=== PATIENT | female | born 1980 | race Caucasian/White ===

== ENCOUNTER 2017-03-07 09:26 | Emergency (ER) | payer BC ==
[2017-03-07 09:36] VITALS: BP 144/85
--- NOTE | 2017-03-07 10:20 | UC ---
Throat Pain/Nasal Ishmael HPI - HPI Summary HPI Summary: ONE WEEK OF SWOLLEN TONSILS, EAR ACHE FEVER. NO RASHES. NO ABDOMINAL PAIN. - History of Current Complaint Chief Complaint: UCRespiratory Stated Complaint: SORE THROAT HEADACHE FEVER Time Seen by Provider: 03/07/17 09:33 Hx Obtained From: Patient Hx Last Menstrual Period: 02/24/17 Onset/Duration: Gradual Onset, Lasting Days Severity: Moderate Pain Intensity: 7 Pain Scale Used: 0-10 Numeric Cough: Nonproductive Associated Signs & Symptoms: Positive: Sinus Discomfort, Nasal Discharge, Fever - Epiglottits Risk Factors Epiglottis Risk Factors: Negative - Allergies/Home Medications Allergies/Adverse Reactions: Allergies Allergy/AdvReac Type Severity Reaction Status Date / Time No Known Allergies Allergy Verified 03/07/17 09:31 Home Medications: Home Medications Venlafaxine CAP (NF) [Effexor CAP (NF)] 300 mg PO DAILY 03/07/17 [History Confirmed 03/07/17] PMH/Surg Hx/FS Hx/Imm Hx Previously Healthy: Yes - Surgical History Surgical History: Yes Surgery Procedure, Year, and Place: csection. lumbar (4-5)laminectomy 2004. appe - Family History Known Family History: Negative: Respiratory Disease - Social History Occupation: Employed Full-time Lives: With Family Alcohol Use: Rare Substance Use Type: None Smoking Status (MU): Former Smoker When Did the Patient Quit Smoking/Using Tobacco: 10 yrs - Immunization History Most Recent Influenza Vaccination: last winter Most Recent Tetanus Shot: not sure Most Recent Pneumonia Vaccination: never Review of Systems Constitutional: Fever Skin: Negative Eyes: Negative ENT: Sore Throat, Ear Ache, Sinus Congestion Respiratory: Cough Cardiovascular: Negative Gastrointestinal: Negative Genitourinary: Negative Motor: Negative Neurovascular: Negative Musculoskeletal: Negative Neurological: Negative Psychological: Negative Is Patient Immunocompromised?: No All Other Systems Reviewed And Are Negative: Yes Physical Exam Triage Information Reviewed: Yes Appearance: No Pain Distress, Well-Nourished, Ill-Appearing Vital Signs: Initial Vital Signs Temp 99 F 03/07/17 09:34 Pulse 91 03/07/17 09:34 Resp 20 03/07/17 09:34 BP 144/85 03/07/17 09:34 Pulse Ox 100 03/07/17 09:34 Vital Signs Reviewed: Yes Eye Exam: Normal ENT: Positive: Pharyngeal erythema, TM dull, TM red - RIGHT, Tonsillar swelling , Tonsillar exudate Dental Exam: Normal Neck exam: Normal Neck: Positive: Supple, Nontender, No Lymphadenopathy Respiratory Exam: Other - COUGH Respiratory: Positive: Chest non-tender, Lungs clear, Normal breath sounds, No respiratory distress, No accessory muscle use Cardiovascular Exam: Normal Cardiovascular: Positive: RRR, No Murmur, Pulses Normal, Brisk Capillary Refill Abdominal Exam: Normal Musculoskeletal Exam: Normal Musculoskeletal: Positive: Strength Intact, ROM Intact Neurological Exam: Normal Psychological Exam: Normal Skin Exam: Normal Throat Pain/Nasal Course/Dx - Differential Dx/Diagnosis Differential Diagnosis/HQI/PQRI: Pharyngitis, Sinusitis, Tonsillitis, URI Provider Diagnoses: RIGHT OTITIS; TONSILITIS Discharge - Discharge Plan Condition: Stable Disposition: HOME Prescriptions: Amoxicillin/Clavulanate TAB* [Augmentin TAB 875*] 875 mg PO BID #20 tab Patient Education Materials: Tonsillitis (ED), Serous Otitis Media (ED) Referrals: Marcello Barnes MD [Primary Care Provider] -
== END 2017-03-07 10:10 | disposition home or self-care (01) ==
LOC: UCEAST 09:26
DX: J03.90 Acute tonsillitis, unspecified (principal); H66.91 Otitis media, unspecified, right ear; Z87.891 Personal history of nicotine dependence
CPT/HCPCS: 87651; 99212; G0463

== ENCOUNTER 2017-03-26 05:39 | Emergency (ER) | payer BC ==
[2017-03-26] MEDS ORDERED: predniSONE TAB* 20 MG PO ONE (06:07)
[2017-03-26] MEDS ORDERED: Levofloxacin TAB* 750 MG PO ONE (06:07)
--- NOTE | 2017-03-26 06:35 | ED ---
Jeannette Ordonez Thomas, scribed for Efrain Mccartney MD on 03/26/17 at 0610 . Influenza-Like Illness - HPI Summary HPI Summary: The pt is a 36 y/o F presenting to the ED c/o headache, sore throat, postnasal drip, hoarse voice, and bilateral ear pressure for the last two weeks. She has been having an intermittent fever for the last few days (measured at 101). The patient rates her pain 3/10. The patient finished a 10-day course of Augmentin 5 -6 days ago, and her symptoms have worsened since then. The patient has had multiple ear infections in the past year. She has a known recent sick contact positive for influenza. - History of Current Complaint Chief Complaint: EDFluSymptoms Time Seen by Provider: 03/26/17 05:42 Hx Obtained From: Patient Onset/Duration: Lasting Weeks - 2, Still Present, Worse Since - last few days Severity: Moderate Associated Signs & Symptoms: Fever, Sore Throat, Headache Related Hx: Possible Flu/Infectious Exposure - known flu exposure - Allergy/Home Medications Allergies/Adverse Reactions: Allergies Allergy/AdvReac Type Severity Reaction Status Date / Time No Known Allergies Allergy Verified 03/26/17 05:51 PMH/Surg Hx/FS Hx/Imm Hx Previously Healthy: Yes Endocrine/Hematology History: Denies: Hx Diabetes, Hx Thyroid Disease Cardiovascular History: Denies: Hx Hypertension Respiratory History: Denies: Hx Asthma, Hx Chronic Obstructive Pulmonary Disease (COPD) GI History: Denies: Hx Ulcer Musculoskeletal History: Reports: Hx Back Problems, Other Musculoskeletal History - obesity Sensory History: Reports: Hx Contacts or Glasses Opthamlomology History: Reports: Hx Contacts or Glasses - Surgical History Surgery Procedure, Year, and Place: csection. lumbar (4-5)laminectomy 2004. appe Hx Anesthesia Reactions: No Infectious Disease History: No Infectious Disease History: Denies: Hx Clostridium Difficile, Hx Hepatitis, Hx Human Immunodeficiency Virus (HIV), Hx of Known/Suspected MRSA, Hx Shingles, Hx Tuberculosis, Hx Known/ Suspected VRE, Hx Known/Suspected VRSA, History Other Infectious Disease, Traveled Outside the [place] in Last 30 Days - Family History Known Family History: Negative: Respiratory Disease - Social History Occupation: Employed Full-time Lives: With Family Alcohol Use: Rare Substance Use Type: Reports: None Hx Tobacco Use: Yes Smoking Status (MU): Former Smoker Review of Systems Positive: Fever Positive: Sore Throat, Other - Postnasal drip, hoarse voice, bilateral ear pressure Positive: Headache All Other Systems Reviewed And Are Negative: Yes Physical Exam Triage Information Reviewed: Yes Vital Signs On Initial Exam: Initial Vitals Temp Pulse Resp BP Pulse Ox 97.0 F 109 16 127/82 100 03/26/17 05:42 03/26/17 05:42 03/26/17 05:42 03/26/17 05:42 03/26/17 05:42 Vital Signs Reviewed: Yes Appearance: Positive: Well-Appearing, No Pain Distress Skin: Positive: Warm, Skin Color Reflects Adequate Perfusion, Dry, Other - There is an eczematous rash on both hands Head/Face: Positive: Normal Head/Face Inspection Eyes: Positive: EOMI, JAZLYN ENT: Positive: Other - There is some redness in both tympanic membranes. There is no exudate. Posterior pharnyx has clear mucus. Neck: Positive: Supple, Nontender Respiratory/Lung Sounds: Positive: Clear to Auscultation, Breath Sounds Present Cardiovascular: Positive: RRR, Pulses are Symmetrical in both Upper and Lower Extremities Abdomen Description: Positive: Nontender, Soft Bowel Sounds: Positive: Present Musculoskeletal: Positive: Normal, Strength/ROM Intact Neurological: Positive: Normal, Sensory/Motor Intact, Alert, Oriented to Person Place, Time - Cynthia Coma Scale Coma Scale Total: 15 Diagnostics - Vital Signs Vital Signs Temp Pulse Resp BP Pulse Ox 03/26/17 05:42 97.0 F 109 16 127/82 100 - Laboratory Lab Results: Lab Results 03/26/17 03/26/17 Range/Units 06:13 06:14 Influenza A (Rapid) Negative (Negative) Influenza B (Rapid) Negative (Negative) Group A Strep Rapid Negative (Negative) Lab Statement: Any lab studies that have been ordered have been reviewed, and results considered in the medical decision making process. Flu Symptom Course/Dx - Course Course Of Treatment: Pt with neg flu/strep. Sinus pain. Sx greater than 2wks. Tx with steroid, decongestants and Levaquin. Works here as nurse. Assessment/Plan: Rapid Strep, Influenza A and B are negative. - Diagnoses Differential Diagnosis/HQI/PQRI: Positive: Influenza, Upper Respiratory Infection, Other Provider Diagnoses: Acute sinusitis Discharge - Discharge Plan Condition: Good Disposition: HOME Prescriptions: Guaifenesin [Eql Mucus-ER 12 Hour] 600 mg PO BID #20 tab Levofloxacin TAB* [Levaquin TAB*] 750 mg PO DAILY #6 tab predniSONE TAB* [Deltasone TAB*] 50 mg PO DAILY #4 tab Patient Education Materials: Sinusitis (ED) Referrals: Marcello Barnes MD [Primary Care Provider] - Additional Instructions: Sinus rinse. Humidifier while sleeping. Avoid smokers. Return with high fevers, vomiting, worse or other concerns. The documentation as recorded by the Jeannette ness Thomas accurately reflects the service I personally performed and the decisions made by , Efrain Mccartney MD.
[2017-03-26 06:38] VITALS: BP 126/77
== END 2017-03-26 06:33 | disposition home or self-care (01) ==
LOC: ED 05:39
DX: J01.90 Acute sinusitis, unspecified (principal); R50.9 Fever, unspecified; J02.9 Acute pharyngitis, unspecified; R51 Headache; Z87.891 Personal history of nicotine dependence
CPT/HCPCS: 87502; 87651; 99282; A9270-GY; J7512

== ENCOUNTER 2017-04-25 09:54 | Emergency (ER) | payer BC | END 2017-04-25 11:54 | disposition left against medical advice (07) | LOC: UCCORT 09:54 | DX: J98.9 Respiratory disorder, unspecified (principal); Z53.21 Procedure and treatment not carried out due to patient leaving prior to being seen by health care provider ==

== ENCOUNTER 2017-04-30 10:40 | Day surgery (SDC) | payer BC ==
[~2017-04-30 10:40] MED LIST: Buffered Lidocaine 0.9% SYRIN* 5 ML/SYR SYRINGE INTRADERM ONE; Scopolamine 1.5 mg* PATCH TRANSDERM ONE
[2017-04-30] MEDS ORDERED: Scopolamine 1.5 mg* PATCH ONE (10:45)
[2017-04-30] MEDS ORDERED: Succinylcholine* 20 MG/ML 10 ML VIAL ONE (13:36)
[2017-04-30] MEDS ORDERED: Dexamethasone IV* 4 MG/ML 1 ML (4 MG) ONE (13:36)
[2017-04-30] MEDS ORDERED: Ondansetron INJ* 2 MG/ML VIAL ONE (13:36)
[2017-04-30] MEDS ORDERED: fentaNYL* 50 MCG/ML 2 ML VIAL (100 MCG VIAL) ONE ×3 (13:36→14:54)
[2017-04-30] MEDS ORDERED: Propofol* 10 MG/ML 20 ML BTL IV PUSH ONE (13:36)
[2017-04-30] MEDS ORDERED: Lidocaine 2% PF * 5 ML VIAL ONE (13:36)
[2017-04-30] MEDS: fentaNYL* 50 MCG/ML 2 ML VIAL (100 MCG VIAL) IV PRN ×3 (14:15→14:55)
[2017-04-30] MEDS ORDERED: Naloxone* 0.4 MG/ML 1 ML VIAL IV PRN (14:21)
[2017-04-30] MEDS ORDERED: oxyCODONE TAB* 5 MG TAB PO PRN (14:21)
[2017-04-30] MEDS ORDERED: oxyCODONE ORAL.SOLN* 5 MG/5 ML UDC ONE (14:23)
[2017-04-30] MEDS ORDERED: Acetaminophen ADULT LIQ* 650 MG/20.3 ML UDC ONE (15:31)
[2017-04-30 16:12] VITALS: BP 130/86
--- NOTE | 2017-05-01 12:28 | OP ---
DATE OF OPERATION: 04/30/17 - SDS DATE OF : 76 SURGEON: Arturo Orozco MD ANESTHESIOLOGIST: Jackson London MD ANESTHESIA: General PRE-OP DIAGNOSIS: Chronic tonsillitis. POST-OP DIAGNOSIS: Chronic tonsillitis. OPERATIVE PROCEDURE: Tonsillectomy under general endotracheal anesthesia. COMPLICATIONS: None. DISPOSITION: Good. SPECIMENS: Left and right tonsils. ESTIMATED BLOOD LOSS: Minimum. DESCRIPTION OF PROCEDURE: The patient was taken to the operating room, placed in the supine position on the operating room table. General anesthesia was induced and she was orotracheally intubated, turned and draped for the tonsillectomy. Cassy-Steven mouth gag was inserted, retraction was applied, it was suspended from the [place] stand. Right tonsil was grasped, manual traction was applied. Using Bovie cautery, it was dissected along its capsule removing it from the underlying pharyngeal musculature. Left tonsil was grasped, manual traction was applied. Again using Bovie cautery, it was dissected along its capsule, removing it from the underlying pharyngeal musculature. Hemostasis was ensured in both tonsillar fossae using suction cautery. Once this was achieved, Cassy-Steven mouth gag was released, retraction was again applied. No active bleeding. Orogastric tube was inserted into the stomach. Stomach contents suctioned. Cassy-Steven mouth gag was released and removed. The patient tolerated this procedure well, no complications, transferred to the recovery room in stable condition. [id number]/CPS #: [id number] MTDD
[2017-05-03] MEDS ORDERED: Scopolamine PATCH Remove* 1 NOTE MISC PATCH OFF ONE (06:00)
== END 2017-04-30 16:12 | disposition home or self-care (01) ==
LOC: OR 10:40
PROVIDERS: ATTEND Otolaryngology
DX: J03.01 Acute recurrent streptococcal tonsillitis (principal); Z87.891 Personal history of nicotine dependence
CPT/HCPCS: 81025; 88304; A9270-GY; J0330; J1100; J2405; J2704; J3010

== ENCOUNTER → 2018-03-25 06:18 | Emergency (ER) | payer BC ==
[~2018-03-25 06:18] MED LIST changes: -Buffered Lidocaine 0.9% SYRIN* 5 ML/SYR SYRINGE INTRADERM ONE; +HYDROmorphone INJ* 2 MG/ML CARPUJECT SYRINGE IV SLOW PU ONE; +HYDROmorphone INJ1* 1 MG/ML SYRINGE IV SLOW PU ONE; +HYDROmorphone INJ1* 1 MG/ML SYRINGE ONE; +Iohexol 350* (CONTRAST) 500 ML MDV IV ONE; +Ketorolac INJ* 30 MG/ML 1 ML VIAL IV PUSH ONE; +Ketorolac INJ* 30 MG/ML 1 ML VIAL ONE; +Morphine VIAL* 4 MG/ML VIAL (1 ml vial) IV ONE; +NS 0.9% 1000 ML* 1,000 ML IV ONE; +Ondansetron INJ* 2 MG/ML VIAL IV ONE; -Scopolamine 1.5 mg* PATCH TRANSDERM ONE; +oxyCODONE/Acetamin 5/325 MG* TAB ONE; +oxyCODONE/Acetamin 5/325 MG* TAB PO ONE
[2018-03-25 06:58] LABS: Hematocrit 33 % (35-47); Hemoglobin 10.1 g/dl (12.0-16.0); Mean Corpuscular HGB Conc 31 g/dl (31-36); Mean Corpuscular Hemoglobin 21 pg (27-31); Mean Corpuscular Volume 67 fL (80-97); Mean Platelet Volume 8.7 fL (7.4-10.4); Platelet Count 283 10^3/ul (150-450); Red Blood Count 4.91 10^6/ul (4.00-5.40); Red Cell Distribution Width 19 % (10.5-15); White Blood Count 9.3 10^3/ul (3.5-10.8)
[2018-03-25 07:00] LABS: INR 0.98 (0.77-1.02)
[2018-03-25 07:06] LABS: EGFR Non-African American 69.7 (>60)
--- NOTE | 2018-03-25 07:08 | ED ---
Abdominal Pain/Female - HPI Summary HPI Summary: A 37 y/o female presents to the ED c/o abdominal pain. Currently, the patient is experiencing intermittent severe pain reaching 9/10 in severity. Additionally c/o chest pain. In the ED room, the patient has a pulse of 105 BPM , O2 saturation of 91%, and blood pressure of 146/89. As per triage, "Pt in with c/o left upper abd pain and under left breat. pt states pain started in left upper back". According to the patient, she has been experiencing pain that originated in her left upper back as a stabbing pain, however, throughout the night (started tonight) it has been getting worse moving to her chest and abdominal area. She stated that it "catches" her when she is talking. Additional symptoms include lightheadedness, however, she denies any nausea, SOB , vomiting, or dizziness. She noted that it comes and goes (intermittent) and sometimes when it does not come for some time, it suddenly comes at her with a bunch of stabs. It usually happens every minute or two, however, sometimes it is less often then it hits hard and last longer. It is characterized as "a hot knife right through me". It is the same pain as kidney infection she experienced after of youngest child. PMHx of sushila issues, denies cardiac issues, DM and HTN. No control pills. - History of Current Complaint Chief Complaint: EDAbdPain Stated Complaint: LEFT ABD PAIN Time Seen by Provider: 03/25/18 06:21 Hx Obtained From: Patient Hx Last Menstrual Period: 02/24/17 Onset/Duration: Sudden Onset, Still Present Timing: Constant Severity Initially: Severe Severity Currently: Severe Pain Intensity: 0 Pain Scale Used: 0-10 Numeric Location: Discrete At: LLQ Radiates: Yes Radiates to: Back, Chest Character: Sharp Aggravating Factor(s): Nothing Alleviating Factor(s): Nothing Associated Signs and Symptoms: Positive: Chest Pain, Back Pain Allergies/Adverse Reactions: Allergies Allergy/AdvReac Type Severity Reaction Status Date / Time No Known Allergies Allergy Verified 04/23/17 13:52 Home Medications: Home Medications Cetirizine* [ZyrTEC 10 MG TAB*] 10 mg PO DAILY 03/25/18 [History Confirmed 03/25] Cholecalciferol TAB* [Vitamin D TAB*] 5,000 units PO DAILY 03/25/18 [History Confirmed 03/25/18] PMH/Surg Hx/FS Hx/Imm Hx Endocrine/Hematology History: Denies: Hx Diabetes, Hx Sickle Cell Disease, Hx Thyroid Disease Cardiovascular History: Denies: Hx Hypertension, Other Cardiovascular Problems/Disorders Respiratory History: Denies: Hx Asthma, Hx Chronic Obstructive Pulmonary Disease (COPD), Other Respiratory Problems/Disorders GI History: Reports: Hx Gastroesophageal Reflux Disease - patient states it could be from the ibuprofen Denies: Hx Ulcer, Other GI Disorders History: Denies: Other Problems/Disorders Musculoskeletal History: Reports: Hx Back Problems, Hx Tendonitis - right arm, Other Musculoskeletal History - obesity Sensory History: Reports: Hx Contacts or Glasses Denies: Hx Hearing Aid Opthamlomology History: Reports: Hx Contacts or Glasses Neurological History: Denies: Other Neuro Impairments/Disorders - Surgical History Surgery Procedure, Year, and Place: csection. lumbar (4-5)laminectomy 2004. appe Hx Anesthesia Reactions: No Infectious Disease History: No Infectious Disease History: Denies: Hx Clostridium Difficile, Hx Hepatitis, Hx Human Immunodeficiency Virus (HIV), Hx of Known/Suspected MRSA, Hx Shingles, Hx Tuberculosis, Hx Known/ Suspected VRE, Hx Known/Suspected VRSA, History Other Infectious Disease, Traveled Outside the [place] in Last 30 Days - Family History Known Family History: Negative: Respiratory Disease - Social History Alcohol Use: Rare Substance Use Type: Reports: None Hx Tobacco Use: Yes Smoking Status (MU): Former Smoker Amount Used/How Often: 1 ppd for 8-10 years Review of Systems Negative: Fever Positive: Chest Pain Negative: Shortness Of Breath Positive: Abdominal Pain. Negative: Vomiting, Nausea Neurological: Other - POSITIVE: Lightheadedness; NEGATIVE: DIZZINESS All Other Systems Reviewed And Are Negative: Yes Physical Exam - Summary Physical Exam Summary: Appearance: Well appearing, no pain distress Skin: warm, dry, reflects adequate perfusion Head/face: normal Eyes: EOMI, JAZLYN ENT: normal Neck: supple, non-tender Respiratory: CTA, breath sounds present Cardiovascular: RRR, tend lf chest Abdomen: tenderness luq tend Musculoskeletal: normal, strength/ROM intact Neuro: normal, sensory motor intact, A&Ox3 Triage Information Reviewed: Yes Vital Signs On Initial Exam: Initial Vitals Temp Pulse Resp BP Pulse Ox 97.7 F 95 20 146/89 98 03/25/18 06:21 03/25/18 06:21 03/25/18 06:21 03/25/18 06:21 03/25/18 06:21 Vital Signs Reviewed: Yes Diagnostics - Vital Signs Vital Signs Temp Pulse Resp BP Pulse Ox 03/25/18 06:52 97 121/96 99 03/25/18 06:51 20 03/25/18 06:25 95 98 03/25/18 06:21 97.7 F 106 20 146/89 97 - Laboratory Lab Results: Lab Results 03/25/18 03/25/18 Range/Units 06:43 06:43 WBC 9.3 (3.5-10.8) 10^3/ul RBC 4.91 (4.00-5.40) 10^6/ul Hgb 10.1 L (12.0-16.0) g/dl Hct 33 L (35-47) % MCV 67 L (80-97) fL MCH 21 L (27-31) pg MCHC 31 (31-36) g/dl RDW 19 H (10.5-15) % Plt Count 283 (150-450) 10^3/ul MPV 8.7 (7.4-10.4) fL Neut % (Auto) Pending Lymph % (Auto) Pending [place] % (Auto) Pending Eos % (Auto) Pending Baso % (Auto) Pending Absolute Neuts (auto) Pending Absolute Lymphs (auto) Pending Absolute Monos (auto) Pending Absolute Eos (auto) Pending Absolute Basos (auto) Pending Absolute Nucleated RBC Pending Nucleated RBC % Pending INR (Anticoag Therapy) 0.98 (0.77-1.02) APTT 27.7 (26.0-36.3) seconds D-Dimer, Quantitative 259 H (Less Than 230) ng/mL Result Diagrams: 03/25/18 06:43 03/25/18 06:43 Lab Statement: Any lab studies that have been ordered have been reviewed, and results considered in the medical decision making process. - EKG 0630 Cardiac Rate: NL - 90 BPM EKG Rhythm: Sinus Rhythm - 90 BPM Summary of EKG Findings: no acute changes Re-Evaluation - Re-Evaluation First Eval Re-Evaluation Time: 09:10 Change: Unchanged Comment: abd pain starting in the back but now in her front. Second Eval Re-Evaluation Time: 11:50 Change: Improved Comment: patient is feeling better Abdominal Pain Fem Course/Dx - Course Course Of Treatment: A 37 y/o female presents to the ED c/o abdominal pain. Currently, the patient is experiencing intermittent severe pain reaching 9/10 in severity. Additionally c/o chest pain. In the ED room, the patient has a pulse of 105 BPM, O2 saturation of 91%, and blood pressure of 146/89. As per triage, "Pt in with c/o left upper abd pain and under left breat. pt states pain started in left upper back". According to the patient, she has been experiencing pain that originated in her left upper back as a stabbing pain, however, throughout the night (started tonight) it has been getting worse moving to her chest and abdominal area. She stated that it "catches" her when she is talking. Additional symptoms include lightheadedness, however, she denies any nausea, SOB, vomiting, or dizziness. She noted that it comes and goes (intermittent) and sometimes when it does not come for some time, it suddenly comes at her with a bunch of stabs. It usually happens every minute or two, however, sometimes it is less often then it hits hard and last longer. It is characterized as "a hot knife right through me". It is the same pain as kidney infection she experienced after of youngest child. PMHx of sushila issues, denies cardiac issues, DM and HTN. No control pills. Physical exam revealed LLQ tenderness. An EKG revealed NSR of 90 BPM, no acute changes. In the ED course, the patient recieved Morphine, Zofran, and IV fluids. PATIENT WAS SIGNED OUT TO DR. JORDAN VIA DR. GORDON, PENDING SCANS AND LABS, DURING SHIFT CHANGE ON 03/25/2018 AT 0700. - Diagnoses Differential Diagnosis: Positive: ACS, Diverticulitis, Gall Bladder Disease, Pancreatitis, Peptic Ulcer Disease, Urinary Tract Infection Provider Diagnoses: Chest pain, Abdominal pain Discharge - Sign-Out/Discharge Documenting (check all that apply): Sign-Out Patient - JONO Signing out patient TO: Valeriano Jordan Receiving patient FROM: Alfredito Gordon - Discharge Plan Condition: Stable Disposition: HOME Patient Education Materials: Chest Pain (ED) Referrals: Marcello Barnes MD [Primary Care Provider] - (1-3 days) Additional Instructions: Follow up with your primary care physician in 1-3 days. RETURN TO THE EMERGENCY DEPARTMENT FOR CHANGING OR WORSENING SYMPTOMS. - Billing Disposition and Condition Condition: STABLE Disposition: Home - Attestation Statements Document Initiated by Okibe: Yes Documenting Scribe: Kev Guy Provider For Whom Aleida is Documenting (Include Credential): Alfredito Gordon MD Scribe Attestation: Kev Ordonez, scribed for Alfredito Gordon MD on 03/25/18 at 2131. Scribe Documentation Reviewed: Yes Provider Attestation: The documentation as recorded by the Kev ness accurately reflects the service I personally performed and the decisions made by Alfredito perez MD Status of Scribe Document: Viewed
[2018-03-25 07:27] LABS: ABS Basophils 0.1 10^3/ul (0-0.2); ABS Eosinophils 0.3 10^3/ul (0-0.6); ABS Lymphocytes 2.3 10^3/ul (1.0-4.8); ABS Monocytes 0.6 10^3/ul (0-0.8); ABS Neutrophils 5.9 10^3/ul (1.5-7.7); ABS Nucleated RBC 0 10^3/ul; Eosinophil % 3.6 %; Lymphocyte % 25.3 %; Nucleated Red Blood Cells % 0.1
--- NOTE | 2018-03-25 08:20 | ED ---
Progress - Progress Note Progress Note: Patient was signed out from Dr. Dalton to Dr. Jordan, pending Chest/abd/pelvis CTA and CXR, during shift change at 07:00 03/25/18. CTA chest/abd/pelvis impression: No evidence of aortic dissection is identified. No other masses or fluid collections. ED physician has reviewed this imaging report. CXR impression: No active cardiopulmonary disease. ED physician has reviewed this imaging report. Transthoracic echocardiogram conclusions: The left ventricular chamber size is normal. Global left ventricular wall motion and contractility are within normal limits. There is normal left ventricular systolic function. The estimated ejection fraction is 60-65%. The left atrial chamber size is normal. The right ventricular chamber size and systolic function are within normal limits. ED physician has reviewed this report. Dx: chest pain. The patient will be discharged Re-Evaluation - Re-Evaluation First Eval Re-Evaluation Time: 09:10 Change: Unchanged Comment: abd pain starting in the back but now in her front. Second Eval Re-Evaluation Time: 11:50 Change: Improved Comment: patient is feeling better Course/Dx - Course Course Of Treatment: Patient was signed out from Dr. Dalton to Dr. Jordan, pending Chest/abd/pelvis CTA and CXR, during shift change at 07:00 03/25/18. CTA chest/abd/pelvis, CXR and a transthoracic echocardiogram were obtained. Dx: chest pain. I discussed results with patient and she reports feeling better. She is hemodynamically stable and safe for discharge. Strict return precautions given and she will otherwise follow up with her PCP. - Diagnoses Provider Diagnoses: Chest pain, Abdominal pain Discharge - Sign-Out/Discharge Documenting (check all that apply): Patient Departure - DC - Discharge Plan Condition: Stable Disposition: HOME Patient Education Materials: Chest Pain (ED) Referrals: Marcello Barnes MD [Primary Care Provider] - (1-3 days) Additional Instructions: Follow up with your primary care physician in 1-3 days. RETURN TO THE EMERGENCY DEPARTMENT FOR CHANGING OR WORSENING SYMPTOMS. - Billing Disposition and Condition Condition: STABLE Disposition: Home - Attestation Statements Document Initiated by Scribe: Yes Documenting Scribe: Bob Fuentes Provider For Whom Scribe is Documenting (Include Credential): Valeriano Jordan MD Scribe Attestation: Bob Ordonez, scribed for Valeriano Jordan MD on 03/27/18 at 0245. Scribe Documentation Reviewed: Yes Provider Attestation: The documentation as recorded by the scribe, Bob Fuentes accurately reflects the service I personally performed and the decisions made by me, Juan Alberto Jordan MD Status of Scribe Document: Viewed
[2018-03-25 08:40] LABS: Urine Appearance Clear; Urine Blood Negative (Negative); Urine Color Yellow; Urine Ketones Negative (Negative); Urine Protein Negative (Negative); Urine Specific Gravity 1.038 (1.010-1.030); Urine Urobilinogen Negative (Negative)
[2018-03-25 11:04] VITALS: BP 105/72
--- NOTE | 2018-03-25 11:30 | ECHO ---
Patient: LUZ FRENCH [facility] Rec#: [id number] : 1980 Date: 03/25/2018 Age: 37y Height: 175 cm / 68.9 in Weight: 104 kg / 229.2 lbs Sex: F BSA: 2.2 Room#: ED 18 Admit Date#: 03/25/2018 Referring: Valeriano Jordan Reading: Jeet Patiño DO Executive Associate: Erna Gallegos RN RDCS CC: Marcello Barnes MD Transthoracic Echocardiogram Indication: Chest pain BP: 104/77 HR: 81 Rhythm: NSR Findings History: GERD, former smoker Technical Comments: The study quality is fair. The study is technically limited due to patient body habitus. The study is technically limited due to the patient's smoking history. Left Ventricle: The left ventricular chamber size is normal. There is no left ventricular hypertrophy. There is a prominent septal knuckle. Global left ventricular wall motion and contractility are within normal limits. There is normal left ventricular systolic function. The estimated ejection fraction is 60-65%. There is no consistent Doppler evidence of clinically significant diastolic dysfunction. Left Atrium: The left atrial chamber size is normal. Right Ventricle: The right ventricular chamber size and systolic function are within normal limits. Right Atrium: The right atrium is slightly dilated. Very mobile interatrial septum without color doppler evidence of shunting Aortic Valve: The aortic valve is trileaflet. There is no evidence of aortic valve thickening. There is no evidence of aortic regurgitation. There is no evidence of aortic stenosis. Mitral Valve: The mitral valve appears normal in structure and function. There is a trace of mitral regurgitation. There is no evidence of mitral stenosis. Tricuspid Valve: The tricuspid valve leaflets are normal. There is trace tricuspid regurgitation. No pulmonary hypertension is noted. There is no tricuspid stenosis. Pulmonic Valve: The pulmonic valve appears normal. There is no evidence of pulmonic regurgitation. There is no pulmonic stenosis. Pericardium: There is no significant pericardial effusion. Aorta: There is no dilatation of the ascending aorta. There is no dilatation of the aortic arch. There is mild dilatation of the aortic root. Pulmonary Artery: The main pulmonary artery is not well visualized. Venous: The inferior vena cava appears normal in size. There is an approximate 50% respiratory change in the inferior vena cava dimension. Conclusions The left ventricular chamber size is normal. Global left ventricular wall motion and contractility are within normal limits. There is normal left ventricular systolic function. The estimated ejection fraction is 60-65%. The left atrial chamber size is normal. The right ventricular chamber size and systolic function are within normal limits. No significant valvular abnormalities noted There is no significant pericardial effusion. There is mild dilatation of the aortic root. None prior for comparison at time of interpretation Measurements Name Value Normal Range RVDdMajor (2D) 3.1 cm (2.2 - 4.4) RAd ISD 4CH 5 cm (3.4 - 4.9) RA (A4C)W 3.3 cm (2.9 - 4.6) IVSd (2D) 1.3 cm (0.6 - 1) LVPWd (2D) 0.8 cm (0.6 - 1) LVIDd (2D) 4.3 cm (3.6 - 5.4) LVIDs (2D) 3.3 cm - LV FS (2D) 23 % (25 - 45) Aortic Annulus 2 cm (1.4 - 2.6) Ao root diameter (2D) 3.9 cm (2.1 - 3.5) Ascending Ao 3.2 cm (2.1 - 3.4) Aortic arch 2.6 cm (1.8 - 3.4) LA dimension (AP) 2D 2.8 cm (2.3 - 3.8) LAd ISD 4CH 5 cm (2.9 - 5.3) LA ISD 4CH W 5.1 cm (2.5 - 4.5) Name Value Normal Range LA ESV BP (A/L) index 21.1 ml/m2 - Name Value Normal Range MV E-wave Vmax 0.95 m/sec - MV deceleration time 218 msec - MV A-wave Vmax 0.89 m/sec - MV E:A ratio 1.1 ratio - LV septal e' Vmax 0.08 m/sec - LV lateral e' Vmax 0.17 m/sec - LV E:e' septal ratio 11.9 ratio - LV E:e' lateral ratio 5.6 ratio - Name Value Normal Range AV Vmax 1.5 m/sec - AV VTI 31.7 cm - AV peak gradient 9 mmHg - AV mean gradient 5 mmHg - LVOT Vmax 1.1 m/sec - LVOT VTI 23.5 cm - LVOT peak gradient 5 mmHg - LVOT mean gradient 3 mmHg - ADAMA Vmax 1.1 m/sec - Name Value Normal Range TR Vmax 2.4 m/sec - TR peak gradient 23 mmHg - RAP 8 mmHg - RVSP 31 mmHg - IVC diameter 1.4 cm - Name Value Normal Range PV Vmax 0.91 m/sec -
== END | disposition home or self-care (01) ==
LOC: ED 06:18
DX: R07.9 Chest pain, unspecified (principal); R10.9 Unspecified abdominal pain; Z87.891 Personal history of nicotine dependence
CPT/HCPCS: 36415; 71045; 71275; 74174; 80053; 81003; 83605; 83880; 84484; 84702; 85025; 85060; 85379; 85610; 85730; 93306; 96361; 96374; 96375; 96376; 99283; A9270-GY; J1170; J1885; J2270; J2405; Q9967